=== PATIENT | female | born 1945 | race Caucasian/White ===

== ENCOUNTER 2017-12-03 20:38 | Inpatient (IN) | payer MEDICARE, BC ==
[2017-12-03] MEDS ORDERED: Sodium Chloride 0.9% 1,000 ML IV SCH ×2 (21:45→22:30)
--- NOTE | 2017-12-03 22:02 | EDM.PDOC ---
ED HPI GENERAL MEDICAL PROBLEM - General Chief Complaint: Fever Stated Complaint: FREEZING/2 HOURS Time Seen by Provider: 12/03/17 21:58 Source of Information: Reports: Patient, Family History Limitations: Reports: No Limitations - History of Present Illness INITIAL COMMENTS - FREE TEXT/NARRATIVE: Pt arrived with shaking chills and a temp of 101. She states she had been well and this hit her all of a sudden this evening. She has had a whipple. Onset: Today, Sudden Duration: Hour(s): Location: Reports: Generalized Associated Symptoms: Reports: Fever/Chills Treatments NUTRITION EDUCATOR: Reports: Other (see below) Other Treatments NUTRITION EDUCATOR: GasX Upper Middle Abdominal Pain Score (Numeric/FACES): 2 - Related Data Allergies Allergy/AdvReac Type Severity Reaction Status Date / Time butorphanol [From Stadol] Allergy Anxiety Verified 12/03/17 21:03 calcium [From DHEA] Allergy Anaphylactic Verified 12/03/17 21:03 Shock calcium carbonate [From DHEA] Allergy Anaphylactic Verified 12/03/17 21:03 Shock hydrocodone Allergy Hives Verified 12/03/17 21:03 lorazepam Allergy Anxiety Verified 12/03/17 21:03 methysergide [From Sansert] Allergy Hives Verified 12/03/17 21:03 morphine Allergy Hives Verified 12/03/17 21:03 prasterone (DHEA) [From DHEA] Allergy Anaphylactic Verified 12/03/17 21:03 Shock procaine [From Novocain] Allergy Facial Verified 12/03/17 21:01 Swelling Home Meds: Home Meds Aspirin [Adult Aspirin] 81 mg PO DAILY 12/03/17 [History] Atenolol 12.5 mg PO DAILY 12/03/17 [History] Diltiazem HCl [Cardizem] 30 mg PO DAILY 12/03/17 [History] Ranitidine [Zantac] 75 mg PO DAILY 12/03/17 [History] atorvaSTATin [Lipitor] 80 mg PO BEDTIME 12/03/17 [History] Past Medical History Cardiovascular History: Reports: Bypass, CAD, High Cholesterol, RI, Stents Gastrointestinal History: Reports: Bowel Obstruction [employer] History: Reports: Hematologic History: Reports: Blood Transfusion(s) - Infectious Disease History Infectious Disease History: Reports: Chicken Pox, Mumps - Past Surgical History HEENT Surgical History: Reports: Tonsillectomy GI Surgical History: Reports: Appendectomy, Cholecystectomy, Other (See Below) Other GI Surgeries/Procedures: whipple 2016 Female Surgical History: Reports: Hysterectomy, Lithotripsy/ESWL, Other (See Below) Other Female Surgeries/Procedures: Bladder suspension Endocrine Surgical History: Reports: Parathyroidectomy Neurological Surgical History: Reports: Lumbar Spine, Sacral Spine Musculoskeletal Surgical History: Reports: Arthroscopic Knee, Knee Replacement Social & Family History - Family History Family Medical History: Unobtainable - Tobacco Use Smoking Status *Q: Never Smoker Second Hand Smoke Exposure: No - Caffeine Use Other Caffeine Use: drinks decaf - Recreational Drug Use Recreational Drug Use: No ED ROS GENERAL - Review of Systems Review Of Systems: See Below Constitutional: Reports: Fever, Chills, Malaise HEENT: Reports: No Symptoms Respiratory: Reports: Shortness of Breath Cardiovascular: Reports: No Symptoms Endocrine: Reports: No Symptoms GI/Abdominal: Reports: Other (pt does have slight pain in the epigastric area. ) : Reports: No Symptoms Musculoskeletal: Reports: No Symptoms Skin: Reports: No Symptoms Neurological: Reports: No Symptoms Psychiatric: Reports: No Symptoms ED EXAM, SEPSIS - Physical Exam Exam: See Below Text/Narrative:: pt arrives with a fever and shaking chills. She states she was feeling well and this hit her all of a sudden this pm. Exam Limited By: No Limitations General Appearance: Alert, Anxious, Mild Distress Ears: Normal TMs Nose: Normal Inspection Throat/Mouth: Normal Inspection Head: Atraumatic Neck: Normal Inspection Respiratory/Chest: No Respiratory Distress Cardiovascular: Regular Rate, Rhythm, Tachycardia, Other (hr is 94) GI/Abdominal Exam: Soft, Non-Tender (Female) Exam: Deferred Rectal (Female) Exam: Deferred Back: Normal Inspection Extremities: Normal Inspection Neurological: Alert, Oriented, Normal Cognition Course - Vital Signs Last Recorded V/S: Last Vital Signs Temp 37.5 C 12/03/17 23:10 Pulse 95 12/03/17 23:10 Resp 14 12/03/17 23:10 BP 151/71 H 12/03/17 23:10 Pulse Ox 95 12/03/17 23:10 - Orders/Labs/Meds Orders: Active Orders 24 hr Category Date Time Status Chest 2V [CR] Stat Exams 12/03/17 22:27 Taken CULTURE BLOOD [BC] Urgent Lab 12/03/17 21:45 Received CULTURE BLOOD [BC] Urgent Lab 12/03/17 22:00 Received INFLUENZA A+B AG SCREEN [RM] Stat Lab 12/03/17 22:41 Ordered URINALYSIS W/MICROSCOPIC [UA W/MICROSCOPIC] [URIN] Stat Lab 12/03/17 21:27 Ordered Piperacillin/Tazobactam [Zosyn] 3.375 gm Med 12/03/17 23:00 Active Sodium Chloride 0.9% [Normal Saline] 50 ml IV Q6H Sodium Chloride 0.9% [Normal Saline] 1,000 ml Med 12/03/17 21:45 Active IV ASDIRECTED Sodium Chloride 0.9% [Normal Saline] 1,000 ml Med 12/03/17 22:30 Active IV ASDIRECTED Blood Culture x2 Reflex Set [OM.PC] Urgent Oth 12/03/17 22:03 Ordered Medication Orders Sodium Chloride (Normal Saline) 1,000 mls @ 999 mls/hr IV ASDIRECTED JOSELUIS Last Admin: 12/03/17 22:04 Dose: 999 mls/hr Sodium Chloride (Normal Saline) 1,000 mls @ 999 mls/hr IV ASDIRECTED JOSELUIS Piperacillin Sod/Tazobactam (Sod 3.375 gm/ Sodium Chloride) 50 mls @ 100 mls/ hr IV Q6H [facility] Labs: Laboratory Tests 12/03/17 12/03/17 12/03/17 Range/Units 21:27 21:44 21:44 WBC 16.8 H (4.5-11.0) K/uL RBC 4.44 (3.30-5.50) M/uL Hgb 11.9 L (12.0-15.0) g/dL Hct 36.7 (36.0-48.0) % MCV 83 (80-98) fL MCH 27 (27-31) pg MCHC 32 (32-36) % Plt Count 283 (150-400) K/uL Neut % (Auto) 88 H (36-66) % Lymph % (Auto) 6 L (24-44) % [place] % (Auto) 6 (2-6) % Eos % (Auto) 0 L (2-4) % Baso % (Auto) 0 (0-1) % Sodium (140-148) mmol/L Potassium (3.6-5.2) mmol/L Chloride (100-108) mmol/L Carbon Dioxide (21-32) mmol/L Anion Gap (5.0-14.0) mmol/L BUN (7-18) mg/dL Creatinine (0.6-1.0) mg/dL Est Cr Clr Drug Dosing mL/min Estimated GFR (MDRD) (>60) Glucose (74-106) mg/dL Lactic Acid (0.4-2.0) mmol/L Calcium (8.5-10.1) mg/dL Total Bilirubin (0.2-1.0) mg/dL AST (15-37) U/L ALT (12-78) U/L Alkaline Phosphatase (46-116) U/L C-Reactive Protein 0.36 H (0.0-0.3) mg/dL Total Protein (6.4-8.2) g/dL Albumin (3.4-5.0) g/dL Globulin (2.3-3.5) g/dL Albumin/Globulin Ratio (1.2-2.2) Amylase (25-115) U/L Lipase (73-393) U/L Urine Color Yellow Urine Appearance Clear Urine pH 8.0 (4.5-8.0) Ur Specific [place] 1.015 (1.008-1.030) Urine Protein Negative (NEGATIVE) mg/dL Urine Glucose (UA) Normal (NEGATIVE) mg/dL Urine Ketones Negative (NEGATIVE) mg/dL Urine Occult Blood Negative (NEGATIVE) Urine Nitrite Negative (NEGATIVE) Urine Bilirubin Negative (NEGATIVE) Urine Urobilinogen Normal (NORMAL) mg/dL Ur Leukocyte Esterase Negative (NEGATIVE) Urine RBC 0-5 (0-5) Urine WBC 0-5 (0-5) Ur Epithelial Cells Few Amorphous Sediment Not seen Urine Bacteria Not seen Urine Mucus Not seen 12/03/17 12/03/17 12/03/17 Range/Units 21:44 21:44 21:46 WBC (4.5-11.0) K/uL RBC (3.30-5.50) M/uL Hgb (12.0-15.0) g/dL Hct (36.0-48.0) % MCV (80-98) fL MCH (27-31) pg MCHC (32-36) % Plt Count (150-400) K/uL Neut % (Auto) (36-66) % Lymph % (Auto) (24-44) % [place] % (Auto) (2-6) % Eos % (Auto) (2-4) % Baso % (Auto) (0-1) % Sodium 140 (140-148) mmol/L Potassium 3.6 (3.6-5.2) mmol/L Chloride 103 (100-108) mmol/L Carbon Dioxide 24 (21-32) mmol/L Anion Gap 13.5 (5.0-14.0) mmol/L BUN 19 H (7-18) mg/dL Creatinine 0.8 (0.6-1.0) mg/dL Est Cr Clr Drug Dosing 50.67 mL/min Estimated GFR (MDRD) > 60 (>60) Glucose 158 H (74-106) mg/dL Lactic Acid 2.7 H (0.4-2.0) mmol/L Calcium 8.7 (8.5-10.1) mg/dL Total Bilirubin 0.4 (0.2-1.0) mg/dL AST 30 (15-37) U/L ALT 38 (12-78) U/L Alkaline Phosphatase 101 (46-116) U/L C-Reactive Protein (0.0-0.3) mg/dL Total Protein 7.1 (6.4-8.2) g/dL Albumin 3.7 (3.4-5.0) g/dL Globulin 3.4 (2.3-3.5) g/dL Albumin/Globulin Ratio 1.1 L (1.2-2.2) Amylase (25-115) U/L Lipase 107 (73-393) U/L Urine Color Urine Appearance Urine pH (4.5-8.0) Ur Specific [place] (1.008-1.030) Urine Protein (NEGATIVE) mg/dL Urine Glucose (UA) (NEGATIVE) mg/dL Urine Ketones (NEGATIVE) mg/dL Urine Occult Blood (NEGATIVE) Urine Nitrite (NEGATIVE) Urine Bilirubin (NEGATIVE) Urine Urobilinogen (NORMAL) mg/dL Ur Leukocyte Esterase (NEGATIVE) Urine RBC (0-5) Urine WBC (0-5) Ur Epithelial Cells Amorphous Sediment Urine Bacteria Urine Mucus 12/03/17 Range/Units 22:11 WBC (4.5-11.0) K/uL RBC (3.30-5.50) M/uL Hgb (12.0-15.0) g/dL Hct (36.0-48.0) % MCV (80-98) fL MCH (27-31) pg MCHC (32-36) % Plt Count (150-400) K/uL Neut % (Auto) (36-66) % Lymph % (Auto) (24-44) % [place] % (Auto) (2-6) % Eos % (Auto) (2-4) % Baso % (Auto) (0-1) % Sodium (140-148) mmol/L Potassium (3.6-5.2) mmol/L Chloride (100-108) mmol/L Carbon Dioxide (21-32) mmol/L Anion Gap (5.0-14.0) mmol/L BUN (7-18) mg/dL Creatinine (0.6-1.0) mg/dL Est Cr Clr Drug Dosing mL/min Estimated GFR (MDRD) (>60) Glucose (74-106) mg/dL Lactic Acid (0.4-2.0) mmol/L Calcium (8.5-10.1) mg/dL Total Bilirubin (0.2-1.0) mg/dL AST (15-37) U/L ALT (12-78) U/L Alkaline Phosphatase (46-116) U/L C-Reactive Protein (0.0-0.3) mg/dL Total Protein (6.4-8.2) g/dL Albumin (3.4-5.0) g/dL Globulin (2.3-3.5) g/dL Albumin/Globulin Ratio (1.2-2.2) Amylase 48 (25-115) U/L Lipase (73-393) U/L Urine Color Urine Appearance Urine pH (4.5-8.0) Ur Specific [place] (1.008-1.030) Urine Protein (NEGATIVE) mg/dL Urine Glucose (UA) (NEGATIVE) mg/dL Urine Ketones (NEGATIVE) mg/dL Urine Occult Blood (NEGATIVE) Urine Nitrite (NEGATIVE) Urine Bilirubin (NEGATIVE) Urine Urobilinogen (NORMAL) mg/dL Ur Leukocyte Esterase (NEGATIVE) Urine RBC (0-5) Urine WBC (0-5) Ur Epithelial Cells Amorphous Sediment Urine Bacteria Urine Mucus Meds: Medications Generic Name Dose Route Start Last Admin Trade Name Freq PRN Reason Stop Dose Admin Sodium Chloride 1,000 mls @ 999 mls/hr 12/03/17 21:45 12/03/17 22:04 Normal Saline IV 999 mls/hr ASDIRECTED JOSELUIS Administration Sodium Chloride 1,000 mls @ 999 mls/hr 12/03/17 22:30 Normal Saline IV ASDIRECTED JOSELUIS Piperacillin Sod/Tazobactam 50 mls @ 100 mls/hr 12/03/17 23:00 Sod 3.375 gm/ Sodium Chloride IV Q6H JOSELUIS Discontinued Medications Generic Name Dose Route Start Last Admin Trade Name Freq PRN Reason Stop Dose Admin Acetaminophen 650 mg 12/03/17 22:37 Tylenol PO 12/03/17 22:38 NOW ONE - Re-Assessments/Exams Free Text/Narrative Re-Assessment/Exam: 12/03/17 23:18 pt has a wbc greater than 16,000. She is having shaking chills and she has a temp of 102. She has not vomited. She has no pain when she urinates. Departure - Departure Time of Disposition: 23:19 Disposition: Admitted As Inpatient 65 Condition: Fair Clinical Impression: Sepsis, Dehydration - Discharge Information Referrals: PCP,None [Primary Care Provider] - Forms: ED Department Discharge Care Plan Goals: admit to [facility] - My Orders Last 24 Hours: My Active Orders 12/03/17 21:27 URINALYSIS W/MICROSCOPIC [UA W/MICROSCOPIC] [URIN] Stat 12/03/17 21:45 CULTURE BLOOD [BC] Urgent Sodium Chloride 0.9% [Normal Saline] 1,000 ml IV ASDIRECTED 12/03/17 22:00 CULTURE BLOOD [BC] Urgent 12/03/17 22:03 Blood Culture x2 Reflex Set [OM.PC] Urgent 12/03/17 22:27 Chest 2V [CR] Stat 12/03/17 22:30 Sodium Chloride 0.9% [Normal Saline] 1,000 ml IV ASDIRECTED 12/03/17 22:41 INFLUENZA A+B AG SCREEN [RM] Stat 12/03/17 23:00 Piperacillin/Tazobactam [Zosyn] 3.375 gm Sodium Chloride 0.9% [Normal Saline] 50 ml IV Q6H - Assessment/Plan Last 24 Hours: My Active Orders 12/03/17 21:27 URINALYSIS W/MICROSCOPIC [UA W/MICROSCOPIC] [URIN] Stat 12/03/17 21:45 CULTURE BLOOD [BC] Urgent Sodium Chloride 0.9% [Normal Saline] 1,000 ml IV ASDIRECTED 12/03/17 22:00 CULTURE BLOOD [BC] Urgent 12/03/17 22:03 Blood Culture x2 Reflex Set [OM.PC] Urgent 12/03/17 22:27 Chest 2V [CR] Stat 12/03/17 22:30 Sodium Chloride 0.9% [Normal Saline] 1,000 ml IV ASDIRECTED 12/03/17 22:41 INFLUENZA A+B AG SCREEN [RM] Stat 12/03/17 23:00 Piperacillin/Tazobactam [Zosyn] 3.375 gm Sodium Chloride 0.9% [Normal Saline] 50 ml IV Q6H
[2017-12-03] MEDS ORDERED: Acetaminophen 325 MG Tab PO ONE (22:37)
[2017-12-03] MEDS: Piperacillin/Tazobactam 3.375 GM in Sodium Chloride 0.9% 50 ML IV SCH (23:20)
[2017-12-04] MEDS ORDERED: Bisacodyl 5 MG Tab PO PRN (00:32)
[2017-12-04] MEDS ORDERED: Albuterol/Ipratropium 3.0-0.5 MG/3 ML Neb Soln NEB PRN (00:32)
[2017-12-04] MEDS ORDERED: oxyCODONE 5 MG Tab PO PRN (00:32)
[2017-12-04] MEDS ORDERED: Albuterol 0.083% 2.5 MG/3 ML Neb Soln NEB PRN (00:32)
[2017-12-04] MEDS ORDERED: Ondansetron 4 MG Tab.DIS PO PRN (00:32)
[2017-12-04] MEDS ORDERED: Ondansetron 4 MG/2 ML SDV IV PRN (00:32)
[2017-12-04] MEDS ORDERED: Docusate Sodium 100 MG Cap PO PRN (00:32)
[2017-12-04] MEDS ORDERED: Sodium Chloride 0.9% 1,000 ML IV SCH ×2 (00:32→10:45)
[2017-12-04] MEDS ORDERED: Pantoprazole 40 MG Vial IVPUSH SCH ×2 (00:32→21:00)
[2017-12-04] MEDS ORDERED: Enoxaparin 40 MG/0.4 ML Syringe SUBCUT SCH ×2 (00:32→21:00)
--- NOTE | 2017-12-04 00:40 | PCM.HP ---
H&P History of Present Illness - General Date of Service: 12/03/17 Admit Problem/Dx: Admission Diagnosis/Problem Admission Diagnosis/Problem Sepsis Source of Information: Patient History Limitations: Reports: No Limitations - History of Present Illness Initial Comments - Free Text/Narative: Pt arrived with shaking chills and a temp of 101. She states she had been well and this hit her all of a sudden this evening. She has had a whipple. pt has a wbc greater than 16,000. She is having shaking chills and she has a temp of 102. She has not vomited. She has no pain when she urinates. will plan to admit to hospital for further care and treatment. Onset of Symptoms: Reports: Sudden Symptom Onset Date: 12/03/17 Symptom Onset Time: 17:30 Duration of Symptoms: Reports: Hour(s):, Getting Worse Location: Reports: Generalized Improves with: Reports: None Worsens with: Reports: None Associated Symptoms: Reports: Fever/Chills, Nausea/Vomiting, Weakness Upper Middle Abdominal Pain Score (Numeric/FACES): 2 - Related Data Allergies/Adverse Reactions: Allergies Allergy/AdvReac Type Severity Reaction Status Date / Time butorphanol [From Stadol] Allergy Anxiety Verified 12/03/17 21:03 calcium [From DHEA] Allergy Anaphylactic Verified 12/03/17 21:03 Shock calcium carbonate [From DHEA] Allergy Anaphylactic Verified 12/03/17 21:03 Shock hydrocodone Allergy Hives Verified 12/03/17 21:03 lorazepam Allergy Anxiety Verified 12/03/17 21:03 methysergide [From Sansert] Allergy Hives Verified 12/03/17 21:03 morphine Allergy Hives Verified 12/03/17 21:03 prasterone (DHEA) [From DHEA] Allergy Anaphylactic Verified 12/03/17 21:03 Shock procaine [From Novocain] Allergy Facial Verified 12/03/17 21:01 Swelling Home Medications: Home Meds Aspirin [Adult Aspirin] 81 mg PO DAILY 12/03/17 [History] Atenolol 12.5 mg PO DAILY 12/03/17 [History] Diltiazem HCl [Cardizem] 30 mg PO DAILY 12/03/17 [History] Ranitidine [Zantac] 75 mg PO DAILY 12/03/17 [History] atorvaSTATin [Lipitor] 80 mg PO BEDTIME 12/03/17 [History] Past Medical History Cardiovascular History: Reports: Bypass, CAD, High Cholesterol, [place], Stents, Other (See Below) (Reports history of DVT of lower legs 3) Gastrointestinal History: Reports: Bowel Obstruction 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: Hematologic History: Reports: Blood Transfusion(s) - Infectious Disease History Infectious Disease History: Reports: Chicken Pox, Mumps - Past Surgical History HEENT Surgical History: Reports: Tonsillectomy GI Surgical History: Reports: Appendectomy, Cholecystectomy, Other (See Below) Other GI Surgeries/Procedures: whipple 2016 Female Surgical History: Reports: Hysterectomy, Lithotripsy/ESWL, Other (See Below) Other Female Surgeries/Procedures: Bladder suspension Endocrine Surgical History: Reports: Parathyroidectomy Neurological Surgical History: Reports: Lumbar Spine, Sacral Spine Musculoskeletal Surgical History: Reports: Arthroscopic Knee, Knee Replacement Social & Family History - Family History Family Medical History: Unobtainable - Tobacco Use Smoking Status *Q: Never Smoker Second Hand Smoke Exposure: No - Caffeine Use Other Caffeine Use: drinks decaf - Recreational Drug Use Recreational Drug Use: No - Living Situation & Occupation Living situation: Reports: Occupation: Retired (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 Retired nurse 6 children 11 grandchildren and 6 great- grandchildren) H&P Review of Systems - Review of Systems: Review Of Systems: See Below General: Reports: Fever, Chills, Malaise, Weakness HEENT: Reports: No Symptoms Pulmonary: Reports: No Symptoms Cardiovascular: Reports: No Symptoms Gastrointestinal: Reports: No Symptoms Genitourinary: Reports: No Symptoms Musculoskeletal: Reports: No Symptoms Skin: Reports: No Symptoms Psychiatric: Reports: No Symptoms Neurological: Reports: No Symptoms Hematologic/Lymphatic: Reports: No Symptoms Immunologic: Reports: No Symptoms Exam - Exam Exam: See Below - Vital Signs Vital Signs: Last Vital Signs Temp 37.4 C 12/03/17 23:45 Pulse 93 12/03/17 23:45 Resp 12 12/03/17 23:45 BP 172/73 H 12/03/17 23:45 Pulse Ox 97 12/03/17 23:45 Weight: 74.389 kg - Exam General: Alert, Oriented, Cooperative HEENT: PERRLA, Conjunctiva Clear, EACs Clear, EOMI, Hearing Intact, Mucosa Moist & [place], Nares Patent, Normal Nasal Septum, Posterior Pharynx Clear, Pupils Equal, Pupils Reactive, TMs Clear, Glasses, Other (Natural teeth) Neck: Supple, Trachea Midline, Full Range of Motion Lungs: Clear to Auscultation, Normal Respiratory Effort Cardiovascular: Regular Rate, Regular Rhythm, Normal S1, Normal S2 GI/Abdominal Exam: Normal Bowel Sounds, Soft, Non-Tender, No Organomegaly, No Distention, No Abnormal Bruit, No Mass (Female) Exam: Deferred Rectal (Female) Exam: Deferred Back Exam: Normal Inspection, Full Range of Motion Extremities: Normal Inspection, Normal Range of Motion, Non-Tender, No Pedal Edema, Normal Capillary Refill Skin: Warm, Dry, Intact Neurological: Cranial Nerves Intact, Strength Equal Bilateral, Normal Speech, Normal Tone, Sensation Intact Neuro Extensive - Mental Status: Alert, Oriented x3, Normal Mood/Affect, Normal Cognition, Memory Intact Neuro Extensive - Motor, Sensory, Reflexes: Normal Reflexes, Motor/Sensory Deficits Psychiatric: Alert, Normal Affect, Normal Mood - Patient Data Lab Results Last 24 hrs: Laboratory Results - last 24 hr 12/03/17 12/03/17 12/03/17 Range/Units 21:27 21:44 21:44 WBC 16.8 H (4.5-11.0) K/uL RBC 4.44 (3.30-5.50) M/uL Hgb 11.9 L (12.0-15.0) g/dL Hct 36.7 (36.0-48.0) % MCV 83 (80-98) fL MCH 27 (27-31) pg MCHC 32 (32-36) % Plt Count 283 (150-400) K/uL Neut % (Auto) 88 H (36-66) % Lymph % (Auto) 6 L (24-44) % Dawson % (Auto) 6 (2-6) % Eos % (Auto) 0 L (2-4) % Baso % (Auto) 0 (0-1) % Sodium (140-148) mmol/L Potassium (3.6-5.2) mmol/L Chloride (100-108) mmol/L Carbon Dioxide (21-32) mmol/L Anion Gap (5.0-14.0) mmol/L BUN (7-18) mg/dL Creatinine (0.6-1.0) mg/dL Est Cr Clr Drug Dosing mL/min Estimated GFR (MDRD) (>60) Glucose (74-106) mg/dL Lactic Acid (0.4-2.0) mmol/L Calcium (8.5-10.1) mg/dL Total Bilirubin (0.2-1.0) mg/dL AST (15-37) U/L ALT (12-78) U/L Alkaline Phosphatase (46-116) U/L C-Reactive Protein 0.36 H (0.0-0.3) mg/dL Total Protein (6.4-8.2) g/dL Albumin (3.4-5.0) g/dL Globulin (2.3-3.5) g/dL Albumin/Globulin Ratio (1.2-2.2) Amylase (25-115) U/L Lipase (73-393) U/L Urine Color Yellow Urine Appearance Clear Urine pH 8.0 (4.5-8.0) Ur Specific [place] 1.015 (1.008-1.030) Urine Protein Negative (NEGATIVE) mg/dL Urine Glucose (UA) Normal (NEGATIVE) mg/dL Urine Ketones Negative (NEGATIVE) mg/dL Urine Occult Blood Negative (NEGATIVE) Urine Nitrite Negative (NEGATIVE) Urine Bilirubin Negative (NEGATIVE) Urine Urobilinogen Normal (NORMAL) mg/dL Ur Leukocyte Esterase Negative (NEGATIVE) Urine RBC 0-5 (0-5) Urine WBC 0-5 (0-5) Ur Epithelial Cells Few Amorphous Sediment Not seen Urine Bacteria Not seen Urine Mucus Not seen 12/03/17 12/03/17 12/03/17 Range/Units 21:44 21:44 21:46 WBC (4.5-11.0) K/uL RBC (3.30-5.50) M/uL Hgb (12.0-15.0) g/dL Hct (36.0-48.0) % MCV (80-98) fL MCH (27-31) pg MCHC (32-36) % Plt Count (150-400) K/uL Neut % (Auto) (36-66) % Lymph % (Auto) (24-44) % Dawson % (Auto) (2-6) % Eos % (Auto) (2-4) % Baso % (Auto) (0-1) % Sodium 140 (140-148) mmol/L Potassium 3.6 (3.6-5.2) mmol/L Chloride 103 (100-108) mmol/L Carbon Dioxide 24 (21-32) mmol/L Anion Gap 13.5 (5.0-14.0) mmol/L BUN 19 H (7-18) mg/dL Creatinine 0.8 (0.6-1.0) mg/dL Est Cr Clr Drug Dosing 50.67 mL/min Estimated GFR (MDRD) > 60 (>60) Glucose 158 H (74-106) mg/dL Lactic Acid 2.7 H (0.4-2.0) mmol/L Calcium 8.7 (8.5-10.1) mg/dL Total Bilirubin 0.4 (0.2-1.0) mg/dL AST 30 (15-37) U/L ALT 38 (12-78) U/L Alkaline Phosphatase 101 (46-116) U/L C-Reactive Protein (0.0-0.3) mg/dL Total Protein 7.1 (6.4-8.2) g/dL Albumin 3.7 (3.4-5.0) g/dL Globulin 3.4 (2.3-3.5) g/dL Albumin/Globulin Ratio 1.1 L (1.2-2.2) Amylase (25-115) U/L Lipase 107 (73-393) U/L Urine Color Urine Appearance Urine pH (4.5-8.0) Ur Specific [place] (1.008-1.030) Urine Protein (NEGATIVE) mg/dL Urine Glucose (UA) (NEGATIVE) mg/dL Urine Ketones (NEGATIVE) mg/dL Urine Occult Blood (NEGATIVE) Urine Nitrite (NEGATIVE) Urine Bilirubin (NEGATIVE) Urine Urobilinogen (NORMAL) mg/dL Ur Leukocyte Esterase (NEGATIVE) Urine RBC (0-5) Urine WBC (0-5) Ur Epithelial Cells Amorphous Sediment Urine Bacteria Urine Mucus 12/03/17 Range/Units 22:11 WBC (4.5-11.0) K/uL RBC (3.30-5.50) M/uL Hgb (12.0-15.0) g/dL Hct (36.0-48.0) % MCV (80-98) fL MCH (27-31) pg MCHC (32-36) % Plt Count (150-400) K/uL Neut % (Auto) (36-66) % Lymph % (Auto) (24-44) % Dawson % (Auto) (2-6) % Eos % (Auto) (2-4) % Baso % (Auto) (0-1) % Sodium (140-148) mmol/L Potassium (3.6-5.2) mmol/L Chloride (100-108) mmol/L Carbon Dioxide (21-32) mmol/L Anion Gap (5.0-14.0) mmol/L BUN (7-18) mg/dL Creatinine (0.6-1.0) mg/dL Est Cr Clr Drug Dosing mL/min Estimated GFR (MDRD) (>60) Glucose (74-106) mg/dL Lactic Acid (0.4-2.0) mmol/L Calcium (8.5-10.1) mg/dL Total Bilirubin (0.2-1.0) mg/dL AST (15-37) U/L ALT (12-78) U/L Alkaline Phosphatase (46-116) U/L C-Reactive Protein (0.0-0.3) mg/dL Total Protein (6.4-8.2) g/dL Albumin (3.4-5.0) g/dL Globulin (2.3-3.5) g/dL Albumin/Globulin Ratio (1.2-2.2) Amylase 48 (25-115) U/L Lipase (73-393) U/L Urine Color Urine Appearance Urine pH (4.5-8.0) Ur Specific [place] (1.008-1.030) Urine Protein (NEGATIVE) mg/dL Urine Glucose (UA) (NEGATIVE) mg/dL Urine Ketones (NEGATIVE) mg/dL Urine Occult Blood (NEGATIVE) Urine Nitrite (NEGATIVE) Urine Bilirubin (NEGATIVE) Urine Urobilinogen (NORMAL) mg/dL Ur Leukocyte Esterase (NEGATIVE) Urine RBC (0-5) Urine WBC (0-5) Ur Epithelial Cells Amorphous Sediment Urine Bacteria Urine Mucus Result Diagrams: 12/03/17 21:44 12/03/17 21:44 Donny Results Last 24 hrs: Microbiology 12/03/17 22:41 Influenza Type A Antigen Screen - Final Nasopharyngeal Swab - Nare, Unspecified NEGATIVE INFLUENZA A VIRUS AG Influenza Type B Antigen Screen - Final NEGATIVE INFLUENZA B VIRUS AG - Problem List (1) Diabetes type 2, controlled SNOMED Code(s): 86780762 ICD Code: E11.9 - TYPE 2 DIABETES MELLITUS WITHOUT COMPLICATIONS Status: Acute Priority: Medium Current Visit: Yes Qualifiers: Diabetes mellitus jail insulin use: without intermodal dispatcher use Diabetes mellitus complication status: without complication Qualified Code(s): E11.9 - Type 2 diabetes mellitus without complications (2) Sepsis SNOMED Code(s): 38172138 ICD Code: A41.9 - SEPSIS, UNSPECIFIED ORGANISM Status: Acute Priority: High Current Visit: Yes Qualifiers: Sepsis type: sepsis due to unspecified organism Qualified Code(s): A41.9 - Sepsis, unspecified organism (3) Coronary artery disease SNOMED Code(s): 22430229 ICD Code: I25.10 - ATHSCL HEART DISEASE OF [place] CORONARY ARTERY W/O ANG PCTRS Status: Acute Priority: Medium Current Visit: Yes Qualifiers: Coronary Disease-Associated Artery/Lesion type: bypass graft [place] vs. transplanted heart: [place] heart Associated angina: without angina Qualified Code(s): I25.810 - Atherosclerosis of coronary artery bypass graft(s) without angina pectoris Problem List Initiated/Reviewed/Updated: Yes Orders Last 24hrs: Active Orders 24 hr Category Date Time Status Patient Status [ADT] Routine ADT 12/04/17 00:32 Active Diabetes Education [RC] Click to Edit Care 12/04/17 00:32 Active Intake and Output [RC] QSHIFT Care 12/04/17 00:32 Active Notify Provider Vital Signs [RC] ASDIRECTED Care 12/04/17 00:32 Active Notify Provider [RC] PRN Care 12/04/17 00:32 Active Oxygen Therapy [RC] PRN Care 12/04/17 00:32 Active Pulse Oximetry [RC] PRN Care 12/04/17 00:32 Active RT Aerosol Therapy [RC] ASDIRECTED Care 12/04/17 00:32 Active VTE/DVT Education [RC] Per Unit Routine Care 12/04/17 00:32 Active Vital Signs [RC] Q4H Care 12/04/17 00:32 Active Consult to Spiritual Care [CONS] Routine Cons 12/04/17 00:32 Active Consistent Carbohydrate Diet [DIET] Diet 12/04/17 Breakfast Active Chest 2V [CR] Stat Exams 12/03/17 22:27 Taken BASIC METABOLIC PANEL,BMP [CHEM] AM Lab 12/04/17 05:11 Ordered C-REACTIVE PROTEIN [CHEM] AM Lab 12/04/17 05:11 Ordered C-REACTIVE PROTEIN [CHEM] Stat Lab 12/04/17 00:32 Ordered CBC WITH AUTO DIFF [HEME] AM Lab 12/04/17 05:11 Ordered CULTURE BLOOD [BC] Urgent Lab 12/03/17 21:45 Received CULTURE BLOOD [BC] Urgent Lab 12/03/17 22:00 Received GLUCOSE POC LAB TO COLLECT [POC] QIDACANDBED Lab 12/04/17 07:30 Ordered GLUCOSE POC LAB TO COLLECT [POC] QIDACANDBED Lab 12/04/17 11:30 Ordered GLUCOSE POC LAB TO COLLECT [POC] QIDACANDBED Lab 12/04/17 16:30 Ordered GLUCOSE POC LAB TO COLLECT [POC] QIDACANDBED Lab 12/04/17 21:00 Ordered INFLUENZA A+B AG SCREEN [RM] Stat Lab 12/03/17 22:41 Ordered LACTIC ACID [CHEM] AM Lab 12/04/17 05:11 Ordered URINALYSIS W/MICROSCOPIC [UA W/MICROSCOPIC] [URIN] Stat Lab 12/03/17 21:27 Ordered Acetaminophen [Tylenol] Med 12/04/17 00:32 Ordered 650 mg PO Q4H PRN Albuterol [Proventil Neb Soln] Med 12/04/17 00:32 Ordered 2.5 mg NEB Q4H PRN Albuterol/Ipratropium [DuoNeb 3.0-0.5 MG/3 ML] Med 12/04/17 00:32 Ordered 3 ml NEB QID PRN Atenolol [Tenormin] Med 12/04/17 09:00 Ordered 12.5 mg PO DAILY Bisacodyl [Dulcolax] Med 12/04/17 00:32 Ordered 5 mg PO DAILY PRN Diltiazem IR [Cardizem] Med 12/04/17 09:00 Ordered 30 mg PO DAILY Docusate Sodium [Colace] Med 12/04/17 00:32 Ordered 100 mg PO BID PRN Enoxaparin [Lovenox] Med 12/04/17 00:32 Ordered 40 mg SUBCUT DAILY Insulin Aspart [NovoLOG] Med 12/04/17 07:00 Ordered See Protocol SUBCUT QIDACANDBED Ondansetron [Zofran ODT] Med 12/04/17 00:32 Ordered 4 mg PO Q6H PRN Ondansetron [Zofran] Med 12/04/17 00:32 Ordered 4 mg IV Q4H PRN Pantoprazole [ProTONIX IV] Med 12/04/17 00:32 Ordered 40 mg IVPUSH Q24H Piperacillin/Tazobactam [Zosyn] 3.375 gm Med 12/03/17 23:00 Active Sodium Chloride 0.9% [Normal Saline] 50 ml IV Q6H Sodium Chloride 0.9% [Normal Saline] 1,000 ml Med 12/03/17 21:45 Active IV ASDIRECTED Sodium Chloride 0.9% [Normal Saline] 1,000 ml Med 12/03/17 22:30 Active IV ASDIRECTED Sodium Chloride 0.9% [Normal Saline] 1,000 ml Med 12/04/17 00:32 Ordered IV ASDIRECTED atorvaSTATin [Lipitor] Med 12/04/17 21:00 Ordered 80 mg PO BEDTIME diphenhydrAMINE [Benadryl] Med 12/04/17 00:32 Ordered 25 mg PO BEDTIME PRN oxyCODONE Med 12/04/17 00:32 Ordered 5 mg PO Q4H PRN Blood Culture x2 Reflex Set [OM.PC] Urgent Oth 12/03/17 22:03 Ordered Resuscitation Status Routine Resus Stat 12/04/17 00:07 Ordered Medication Orders Acetaminophen (Tylenol) 650 mg PO Q4H PRN PRN Reason: Pain (Mild 1-3)/fever Albuterol (Proventil Neb Soln) 2.5 mg NEB Q4H PRN PRN Reason: Shortness Of Breath/wheezing Albuterol/Ipratropium (Duoneb 3.0-0.5 Mg/3 Ml) 3 ml NEB QID PRN PRN Reason: Shortness Of Breath/wheezing Atenolol (Tenormin) 12.5 mg PO DAILY JOSELUIS Bisacodyl (Dulcolax) 5 mg PO DAILY PRN PRN Reason: Constipation Diltiazem HCl (Cardizem) 30 mg PO DAILY JOSELUIS Diphenhydramine HCl (Benadryl) 25 mg PO BEDTIME PRN PRN Reason: Insomnia Docusate Sodium (Colace) 100 mg PO BID PRN PRN Reason: Constipation Enoxaparin Sodium (Lovenox) 40 mg SUBCUT DAILY [facility] Sodium Chloride (Normal Saline) 1,000 mls @ 999 mls/hr IV ASDIRECTED [facility] Last Admin: 12/03/17 22:04 Dose: 999 mls/hr Sodium Chloride (Normal Saline) 1,000 mls @ 999 mls/hr IV ASDIRECTED [facility] Last Admin: 12/03/17 23:18 Dose: 999 mls/hr Piperacillin Sod/Tazobactam (Sod 3.375 gm/ Sodium Chloride) 50 mls @ 100 mls/ hr IV Q6H [facility] Last Admin: 12/03/17 23:20 Dose: 100 mls/hr Sodium Chloride (Normal Saline) 1,000 mls @ 125 mls/hr IV ASDIRECTED [facility] Insulin Aspart (Novolog) 0 unit SUBCUT QIDACANDBED [facility]; Protocol Non-Formulary Medication (Atorvastatin [Lipitor]) 80 mg PO BEDTIME [facility] Ondansetron HCl (Zofran Odt) 4 mg PO Q6H PRN PRN Reason: Nausea able to take PO Ondansetron HCl (Zofran) 4 mg IV Q4H PRN PRN Reason: Nausea/Vomiting Oxycodone HCl (Oxycodone) 5 mg PO Q4H PRN PRN Reason: Pain (moderate 4-6) Pantoprazole Sodium (Protonix Iv) 40 mg IVPUSH Q24H [facility] Assessment/Plan Comment:: Assessment/Plan Comment:: ASSESSMENT AND PLAN - Mrs. Naranjo reports a sudden onset of fever and shaking chills started at 5: 30 PM on 12/03/17. She reports her day started about as usual she ate and drank her normal amounts , intake fluids , she was active and then got suddenly ill. Denies any tick bites, sick contacts, or any other recent illness. She became progressively weaker with shaking chills came to ER for treatment from her home in [facility]. In the ER he had labs which show a WBC 16, 000, lactic acid 2.7, influenza A and B negative, Chest xray negative. She was given one liter of fluid, Zosyn 3.375 mg IV. Sepsis unknown cause -IV Zosyn 3.375 mg every 6 hours -IV fluid bolus followed by continuous infusion overnight. Lactated Ringer's at 125 mL per hour -Blood culture pending -Scheduled and as needed nebulizers -Repeat labs in a.m. Coronary artery disease with hyperlipidemia -History of DVT 3 -Lovenox 40 mg subcut now -Outpatient medications Diabetes type 2 -Glucose monitoring 4 times daily -Low dose sliding scale insulin -Hold metformin Maintenance issues - - DVT prophylaxis - Lovenox 40 mg subcutaneous - GI prophylaxis - IV Protonix 40mg po daily - Nutrition - consistent carb diet - Howell catheter - not indicated CODE STATUS -full Admission justification - This patient will be admitted for inpatient services and is medically appropriate meeting medical necessity for inpatient admission as outlined in my documentation. I reasonably expect the patient will require inpatient services that span a period time over 2 midnights. I reasonably expect this patient to be discharged or transferred within 96 hours [facility]. Disposition - anticipate discharge home after the hospital stay Primary care physician - [id number] health care provider Hospitalists: Joaquín Manley M.D.
[2017-12-04] MEDS: diphenhydrAMINE 25 MG Cap PO PRN ×2 (01:26→22:23)
[2017-12-04] MEDS: Acetaminophen 325 MG Tab PO PRN ×3 (03:21→19:28)
[2017-12-04] MEDS: Piperacillin/Tazobactam 3.375 GM in Sodium Chloride 0.9% 50 ML IV SCH (05:23)
[2017-12-04] MEDS: Insulin Aspart 100 Units/ML 3 ML Pen SUBCUT SCH ×4 (09:04→21:13)
--- NOTE | 2017-12-04 09:32 | CR ---
CHEST: 2 view CLINICAL HISTORY:Fever COMPARISON:None FINDINGS: Heart size and pulmonary vascularity are normal. Patient has had previous sternotomy. No i nfiltrate effusion or pneumothorax is seen. IMPRESSION: Previous sternotomy No acute cardio pelvic process
[2017-12-04] MEDS: Atenolol 25 MG Tab PO SCH (09:40)
[2017-12-04] MEDS: Diltiazem IR 30 MG Tab PO SCH (09:41)
--- NOTE | 2017-12-04 10:36 | PCM.PN ---
- General Info Date of Service: 12/04/17 Functional Status: Reports: Pain Controlled, Tolerating Diet - Review of Systems General: Denies: Fever Gastrointestinal: Reports: Abdominal Pain Systems Review Comment:: No acute events overnight. Shaking has resolved. No fever this morning. White blood cell count trending down. Mild to moderate epigastric abdominal pain but no nausea or vomiting. No diarrhea. - Patient Data Vitals - Most Recent: Last Vital Signs Temp 37.3 C 12/04/17 07:00 Pulse 82 12/04/17 09:40 Resp 16 12/04/17 07:00 BP 144/64 H 12/04/17 09:40 Pulse Ox 96 12/04/17 10:11 Weight - Most Recent: 78.29 kg I&O - Last 24 Hours: Intake & Output 12/03/17 12/04/17 12/04/17 22:59 06:59 14:59 Intake Total 700 Output Total 1100 1850 1400 Balance -1100 -1150 -1400 Lab Results Last 24 Hours: Laboratory Results - last 24 hr 12/03/17 12/03/17 12/03/17 Range/Units 21:27 21:44 21:44 WBC 16.8 H (4.5-11.0) K/uL RBC 4.44 (3.30-5.50) M/uL Hgb 11.9 L (12.0-15.0) g/dL Hct 36.7 (36.0-48.0) % MCV 83 (80-98) fL MCH 27 (27-31) pg MCHC 32 (32-36) % Plt Count 283 (150-400) K/uL Neut % (Auto) 88 H (36-66) % Lymph % (Auto) 6 L (24-44) % Delta % (Auto) 6 (2-6) % Eos % (Auto) 0 L (2-4) % Baso % (Auto) 0 (0-1) % Sodium (140-148) mmol/L Potassium (3.6-5.2) mmol/L Chloride (100-108) mmol/L Carbon Dioxide (21-32) mmol/L Anion Gap (5.0-14.0) mmol/L BUN (7-18) mg/dL Creatinine (0.6-1.0) mg/dL Est Cr Clr Drug Dosing mL/min Estimated GFR (MDRD) (>60) Glucose (74-106) mg/dL Lactic Acid (0.4-2.0) mmol/L Calcium (8.5-10.1) mg/dL Total Bilirubin (0.2-1.0) mg/dL AST (15-37) U/L ALT (12-78) U/L Alkaline Phosphatase (46-116) U/L C-Reactive Protein 0.36 H (0.0-0.3) mg/dL Total Protein (6.4-8.2) g/dL Albumin (3.4-5.0) g/dL Globulin (2.3-3.5) g/dL Albumin/Globulin Ratio (1.2-2.2) Amylase (25-115) U/L Lipase (73-393) U/L Urine Color Yellow Urine Appearance Clear Urine pH 8.0 (4.5-8.0) Ur Specific Clark 1.015 (1.008-1.030) Urine Protein Negative (NEGATIVE) mg/dL Urine Glucose (UA) Normal (NEGATIVE) mg/dL Urine Ketones Negative (NEGATIVE) mg/dL Urine Occult Blood Negative (NEGATIVE) Urine Nitrite Negative (NEGATIVE) Urine Bilirubin Negative (NEGATIVE) Urine Urobilinogen Normal (NORMAL) mg/dL Ur Leukocyte Esterase Negative (NEGATIVE) Urine RBC 0-5 (0-5) Urine WBC 0-5 (0-5) Ur Epithelial Cells Few Amorphous Sediment Not seen Urine Bacteria Not seen Urine Mucus Not seen 12/03/17 12/03/17 12/03/17 Range/Units 21:44 21:44 21:46 WBC (4.5-11.0) K/uL RBC (3.30-5.50) M/uL Hgb (12.0-15.0) g/dL Hct (36.0-48.0) % MCV (80-98) fL MCH (27-31) pg MCHC (32-36) % Plt Count (150-400) K/uL Neut % (Auto) (36-66) % Lymph % (Auto) (24-44) % Delta % (Auto) (2-6) % Eos % (Auto) (2-4) % Baso % (Auto) (0-1) % Sodium 140 (140-148) mmol/L Potassium 3.6 (3.6-5.2) mmol/L Chloride 103 (100-108) mmol/L Carbon Dioxide 24 (21-32) mmol/L Anion Gap 13.5 (5.0-14.0) mmol/L BUN 19 H (7-18) mg/dL Creatinine 0.8 (0.6-1.0) mg/dL Est Cr Clr Drug Dosing 50.67 mL/min Estimated GFR (MDRD) > 60 (>60) Glucose 158 H (74-106) mg/dL Lactic Acid 2.7 H (0.4-2.0) mmol/L Calcium 8.7 (8.5-10.1) mg/dL Total Bilirubin 0.4 (0.2-1.0) mg/dL AST 30 (15-37) U/L ALT 38 (12-78) U/L Alkaline Phosphatase 101 (46-116) U/L C-Reactive Protein (0.0-0.3) mg/dL Total Protein 7.1 (6.4-8.2) g/dL Albumin 3.7 (3.4-5.0) g/dL Globulin 3.4 (2.3-3.5) g/dL Albumin/Globulin Ratio 1.1 L (1.2-2.2) Amylase (25-115) U/L Lipase 107 (73-393) U/L Urine Color Urine Appearance Urine pH (4.5-8.0) Ur Specific Clark (1.008-1.030) Urine Protein (NEGATIVE) mg/dL Urine Glucose (UA) (NEGATIVE) mg/dL Urine Ketones (NEGATIVE) mg/dL Urine Occult Blood (NEGATIVE) Urine Nitrite (NEGATIVE) Urine Bilirubin (NEGATIVE) Urine Urobilinogen (NORMAL) mg/dL Ur Leukocyte Esterase (NEGATIVE) Urine RBC (0-5) Urine WBC (0-5) Ur Epithelial Cells Amorphous Sediment Urine Bacteria Urine Mucus 12/03/17 12/04/17 12/04/17 Range/Units 22:11 05:04 05:04 WBC 11.9 H (4.5-11.0) K/uL RBC 3.96 (3.30-5.50) M/uL Hgb 10.5 L (12.0-15.0) g/dL Hct 33.0 L (36.0-48.0) % MCV 83 (80-98) fL MCH 27 (27-31) pg MCHC 32 (32-36) % Plt Count 262 (150-400) K/uL Neut % (Auto) 80 H (36-66) % Lymph % (Auto) 13 L (24-44) % Delta % (Auto) 6 (2-6) % Eos % (Auto) 1 L (2-4) % Baso % (Auto) 0 (0-1) % Sodium 143 (140-148) mmol/L Potassium 3.4 L (3.6-5.2) mmol/L Chloride 108 (100-108) mmol/L Carbon Dioxide 24 (21-32) mmol/L Anion Gap 14.4 H (5.0-14.0) mmol/L BUN 12 (7-18) mg/dL Creatinine 0.6 (0.6-1.0) mg/dL Est Cr Clr Drug Dosing 67.56 mL/min Estimated GFR (MDRD) > 60 (>60) Glucose 122 H (74-106) mg/dL Lactic Acid (0.4-2.0) mmol/L Calcium 7.8 L (8.5-10.1) mg/dL Total Bilirubin (0.2-1.0) mg/dL AST (15-37) U/L ALT (12-78) U/L Alkaline Phosphatase (46-116) U/L C-Reactive Protein 1.43 H (0.0-0.3) mg/dL Total Protein (6.4-8.2) g/dL Albumin (3.4-5.0) g/dL Globulin (2.3-3.5) g/dL Albumin/Globulin Ratio (1.2-2.2) Amylase 48 (25-115) U/L Lipase (73-393) U/L Urine Color Urine Appearance Urine pH (4.5-8.0) Ur Specific Clark (1.008-1.030) Urine Protein (NEGATIVE) mg/dL Urine Glucose (UA) (NEGATIVE) mg/dL Urine Ketones (NEGATIVE) mg/dL Urine Occult Blood (NEGATIVE) Urine Nitrite (NEGATIVE) Urine Bilirubin (NEGATIVE) Urine Urobilinogen (NORMAL) mg/dL Ur Leukocyte Esterase (NEGATIVE) Urine RBC (0-5) Urine WBC (0-5) Ur Epithelial Cells Amorphous Sediment Urine Bacteria Urine Mucus 12/04/17 Range/Units 05:04 WBC (4.5-11.0) K/uL RBC (3.30-5.50) M/uL Hgb (12.0-15.0) g/dL Hct (36.0-48.0) % MCV (80-98) fL MCH (27-31) pg MCHC (32-36) % Plt Count (150-400) K/uL Neut % (Auto) (36-66) % Lymph % (Auto) (24-44) % Delta % (Auto) (2-6) % Eos % (Auto) (2-4) % Baso % (Auto) (0-1) % Sodium (140-148) mmol/L Potassium (3.6-5.2) mmol/L Chloride (100-108) mmol/L Carbon Dioxide (21-32) mmol/L Anion Gap (5.0-14.0) mmol/L BUN (7-18) mg/dL Creatinine (0.6-1.0) mg/dL Est Cr Clr Drug Dosing mL/min Estimated GFR (MDRD) (>60) Glucose (74-106) mg/dL Lactic Acid 1.5 (0.4-2.0) mmol/L Calcium (8.5-10.1) mg/dL Total Bilirubin (0.2-1.0) mg/dL AST (15-37) U/L ALT (12-78) U/L Alkaline Phosphatase (46-116) U/L C-Reactive Protein (0.0-0.3) mg/dL Total Protein (6.4-8.2) g/dL Albumin (3.4-5.0) g/dL Globulin (2.3-3.5) g/dL Albumin/Globulin Ratio (1.2-2.2) Amylase (25-115) U/L Lipase (73-393) U/L Urine Color Urine Appearance Urine pH (4.5-8.0) Ur Specific Clark (1.008-1.030) Urine Protein (NEGATIVE) mg/dL Urine Glucose (UA) (NEGATIVE) mg/dL Urine Ketones (NEGATIVE) mg/dL Urine Occult Blood (NEGATIVE) Urine Nitrite (NEGATIVE) Urine Bilirubin (NEGATIVE) Urine Urobilinogen (NORMAL) mg/dL Ur Leukocyte Esterase (NEGATIVE) Urine RBC (0-5) Urine WBC (0-5) Ur Epithelial Cells Amorphous Sediment Urine Bacteria Urine Mucus Donny Results Last 24 Hours: Microbiology 12/03/17 22:41 Influenza Type A Antigen Screen - Final Nasopharyngeal Swab - Nare, Unspecified NEGATIVE INFLUENZA A VIRUS AG Influenza Type B Antigen Screen - Final NEGATIVE INFLUENZA B VIRUS AG Med Orders - Current: Current Medications Acetaminophen (Tylenol) 650 mg PO Q4H PRN PRN Reason: Pain (Mild 1-3)/fever Last Admin: 12/04/17 07:17 Dose: 650 mg Albuterol (Proventil Neb Soln) 2.5 mg NEB Q4H PRN PRN Reason: Shortness Of Breath/wheezing Albuterol/Ipratropium (Duoneb 3.0-0.5 Mg/3 Ml) 3 ml NEB QID PRN PRN Reason: Shortness Of Breath/wheezing Atenolol (Tenormin) 12.5 mg PO DAILY [facility] Last Admin: 12/04/17 09:40 Dose: 12.5 mg Atorvastatin Calcium (Lipitor) 20 mg PO BEDTIME [facility] Bisacodyl (Dulcolax) 5 mg PO DAILY PRN PRN Reason: Constipation Diltiazem HCl (Cardizem) 30 mg PO DAILY [facility] Last Admin: 12/04/17 09:41 Dose: 30 mg Diphenhydramine HCl (Benadryl) 25 mg PO BEDTIME PRN PRN Reason: Insomnia Last Admin: 12/04/17 01:26 Dose: 25 mg Docusate Sodium (Colace) 100 mg PO BID PRN PRN Reason: Constipation Enoxaparin Sodium (Lovenox) 40 mg SUBCUT BEDTIME [facility] Piperacillin/Tazobactam/ (Dextrose 3.375 gm/ Premix) 50 mls @ 100 mls/hr IV Q6H [facility] Insulin Aspart (Novolog) 0 unit SUBCUT QIDACANDBED [facility]; Protocol Last Admin: 12/04/17 09:04 Dose: Not Given Ondansetron HCl (Zofran Odt) 4 mg PO Q6H PRN PRN Reason: Nausea able to take PO Ondansetron HCl (Zofran) 4 mg IV Q4H PRN PRN Reason: Nausea/Vomiting Oxycodone HCl (Oxycodone) 5 mg PO Q4H PRN PRN Reason: Pain (moderate 4-6) Discontinued Medications Acetaminophen (Tylenol) 650 mg PO NOW ONE Stop: 12/03/17 22:38 Last Admin: 12/03/17 23:19 Dose: 650 mg Enoxaparin Sodium (Lovenox) 40 mg SUBCUT DAILY [facility] Last Admin: 12/04/17 01:14 Dose: 40 mg Sodium Chloride (Normal Saline) 1,000 mls @ 999 mls/hr IV ASDIRECTED [facility] Last Admin: 12/03/17 22:04 Dose: 999 mls/hr Sodium Chloride (Normal Saline) 1,000 mls @ 999 mls/hr IV ASDIRECTED [facility] Last Admin: 12/03/17 23:18 Dose: 999 mls/hr Piperacillin Sod/Tazobactam (Sod 3.375 gm/ Sodium Chloride) 50 mls @ 100 mls/ hr IV Q6H [facility] Last Admin: 12/04/17 05:23 Dose: 100 mls/hr Sodium Chloride (Normal Saline) 1,000 mls @ 125 mls/hr IV ASDIRECTED [facility] Last Admin: 12/04/17 09:39 Dose: 125 mls/hr Pantoprazole Sodium (Protonix Iv) 40 mg IVPUSH Q24H [facility] Last Admin: 12/04/17 01:14 Dose: 40 mg Pantoprazole Sodium (Protonix Iv) 40 mg IVPUSH BEDTIME [facility] - Exam Quality Assessment: No: Supplemental Oxygen General: Alert, Oriented, Cooperative, No Acute Distress Neck: Supple Lungs: Clear to Auscultation, Normal Respiratory Effort Cardiovascular: Regular Rate, Regular Rhythm GI/Abdominal Exam: Normal Bowel Sounds, Soft, No Distention, Tender Extremities: No Pedal Edema Psy/Mental Status: Alert, Normal Affect - Problem List Review Problem List Initiated/Reviewed/Updated: Yes - My Orders Last 24 Hours: My Active Orders 12/04/17 10:33 Abdomen Pelvis w Cont [CT] Routine Potassium Chloride [Klor-Con M20] 40 meq PO ONETIME ONE 12/04/17 10:45 Sodium Chloride 0.9% [Normal Saline] 1,000 ml IV ASDIRECTED 12/04/17 21:00 Pantoprazole [ProTONIX] 40 mg PO BEDTIME 12/05/17 05:00 BASIC METABOLIC PANEL,BMP [CHEM] Timed CBC W/O DIFF,HEMOGRAM [HEME] Timed (1) - Plan Plan:: ASSESSMENT AND PLAN - Suspected Sepsis, unknown cause - no obvious source of infection at this time but patient did have tachycardia, lactic acidosis at presentation. She is receiving empiric antibiotics but no obvious symptoms to localize infection. Chest x-ray clear and urine was clear. 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 -continue Pip/Tazo -Gentle IV fluids -CT of the abdomen and pelvis -follow-up cultures Coronary artery disease with hyperlipidemia -no active symptoms. -Continue home medications Diabetes type 2 - sugar control acceptable. -Glucose monitoring 4 times daily -Low dose sliding scale insulin -Hold metformin Maintenance issues - - DVT prophylaxis - enoxaparin 40 mg subcutaneous - GI prophylaxis - PPI - Nutrition - consistent carb diet Disposition - anticipate discharge home after the hospital stay Joaquín Manley M.D.
[2017-12-04] MEDS ORDERED: Potassium Chloride 20 MEQ Tab.ER PO ONE (11:00)
[2017-12-04] MEDS ORDERED: Piperacillin/Tazobactam/Dext 3.375 GM in Premix Bag 1 BAG IV SCH (12:00)
[2017-12-04] MEDS ORDERED: Iopamidol 612 MG/ML 150 ML Bottle IV SCH (13:45)
--- NOTE | 2017-12-04 15:56 | CT ---
Abdomen Pelvis w Cont CLINICAL HISTORY: Abdominal pain, sepsis COMPARISON: None. TECHNIQUE: Axial tomographic images are obtained from the dome of the diaphragm to the pubic symphysi s with IV contrast enhancement. No oral contrast was used. Auto dosage reduction and iterative recons truction techniques employed. FINDINGS: The lung bases are clear. The liver shows diffuse pneumobilia without dilatation. There is a 2.5 x 1.7 cm cyst in the right lobe. The gallbladder has been removed. There are multiple bowel loo ps in the marcell hepatis region extending and replacing the region of the head of the pancreas. This s uggests previous partial pancreatectomy. There is mild prominence of pancreatic duct. No inflammatory changes are identified. The spleen has a normal size and shape. The adrenal glands appear normal danilo aterally. The right kidney shows some pelvocaliectasis and a prominent extrarenal pelvis. The ureter has a normal course and contour. The there multiple cysts on the left kidney. The largest measures 4. 9 x 4.6 cm. The aorta shows no aneurysm. The there is some atherosclerotic plaque.. There is no suspi cious retroperitoneal adenopathy. The appendix is not identified. Intestinal gas pattern is nonacute. There is a small periumbilical hernia containing peritoneal fat IMPRESSION: Previous pancreatic and choledocho surgery with resection of pancreatic head. Pneumobilia without biliary dilatation Right-sided pelvocaliectasis with a prominent extra renal pelvis. This appears chronic. The there may be parapelvic cyst Multiple left renal cysts Small peribuccal hernia containing peritoneal fat
[2017-12-04] MEDS ORDERED: atorvaSTATin 20 MG Tab PO SCH (21:00)
[2017-12-04] MEDS ORDERED: Pantoprazole 40 MG Tab.CR PO SCH (21:00)
[2017-12-05] MEDS: Acetaminophen 325 MG Tab PO PRN (03:03)
[2017-12-05] MEDS: Atenolol 25 MG Tab PO SCH (09:08)
[2017-12-05] MEDS: Diltiazem IR 30 MG Tab PO SCH (09:09)
[2017-12-05] MEDS: Insulin Aspart 100 Units/ML 3 ML Pen SUBCUT SCH (09:10)
--- NOTE | 2017-12-05 09:52 | PCM.DCSUM1 ---
Discharge Summary - Hospital Course Brief History: 72-year-old female with history of Whipple procedure, type 2 diabetes mellitus and coronary artery disease who presented with shaking. Workup in the emergency room was concerning for sepsis though source of infection was not clear. She was admitted for management. - Discharge Data Discharge Date: 12/05/17 Discharge Disposition: Home, Self-Care 01 Condition: Good - Discharge Diagnosis/Problem(s) (1) Sepsis SNOMED Code(s): 05101487 ICD Code: A41.9 - SEPSIS, UNSPECIFIED ORGANISM Status: Suspected Qualifiers: Sepsis type: sepsis due to unspecified organism Qualified Code(s): A41.9 - Sepsis, unspecified organism (2) Dehydration SNOMED Code(s): 39160572 ICD Code: E86.0 - DEHYDRATION Status: Acute (3) Diabetes mellitus SNOMED Code(s): 82352454 ICD Code: E11.9 - TYPE 2 DIABETES MELLITUS WITHOUT COMPLICATIONS Status: Chronic Qualifiers: Diabetes mellitus type: type 2 Diabetes mellitus long-term insulin use: without long-term use Diabetes mellitus complication status: with unspecified complications Qualified Code(s): E11.8 - Type 2 diabetes mellitus with unspecified complications (4) CAD (coronary artery disease) SNOMED Code(s): 62084254 ICD Code: I25.10 - ATHSCL HEART DISEASE OF [place] CORONARY ARTERY W/O ANG PCTRS Status: Chronic Qualifiers: Coronary Disease-Associated Artery/Lesion type: [place] artery [place] vs. transplanted heart: [place] heart Associated angina: without angina Qualified Code(s): I25.10 - Atherosclerotic heart disease of [place] coronary artery without angina pectoris - Patient Summary/Data Consults: Consultations 12/04/17 00:32 Consult to Spiritual Care [CONS] Routine Hospital Course: Donna presented to the emergency room with an episode of shaking and some epigastric pain. Workup in the emergency room was concerning for sepsis with mild tachycardia, lactic acidosis and leukocytosis. There was no obvious source of infection identified. Chest x-ray was clear and urine did not suggest infection. She was empirically started on Pip/Tazo and IV fluids and admitted to the hospital. Overnight her lactic acid level normalized with IV fluids. White blood cell count trended down and clinically she felt much better the morning after admission. She did have some persistent epigastric abdominal pain and was concerned that she had similar episodes to this while she was dealing with her pancreas issues. We did perform a CT scan of the abdomen and pelvis which did not show acute pathology. At this point we discontinued antibiotics and IV fluids. We elected to watch in the hospital a second night. Overnight there were no acute issues. White blood cell count trended farther into the normal range. She did not have any fevers. Her pain has resolved. She has not had any vomiting or diarrhea. The exact cause for her symptoms is not entirely clear. Dehydration may have been contributing. I don't find any evidence for infection and I don't believe she needs additional antibiotics. She will be discharged home and encouraged to return if symptoms return. - Patient Instructions Diet: Diabetic Diet Activity: As Tolerated Driving: May Drive Today Showering/Bathing: May Shower Notify Provider of: Fever, Increased Pain, Nausea and/or Vomiting Other/Special Instructions: 1. You were in the hospital for management of suspected sepsis syndrome. We did not find any strong evidence for infection and antibiotics were discontinued. Your condition has improved with gentle hydration. With no strong evidence for infection do not believe he needs additional antibiotic therapy. I would recommend 64 ounces of water daily to maintain hydration and close monitoring of symptoms to see if additional problems arise. 2. Continue your usual medications as previously prescribed. 3. Follow-up if you develop fever greater than 101, recurrence of the shaking spells, abdominal pain, persistent vomiting or severe diarrhea. - Discharge Plan Home Medications: Home Meds Aspirin [Adult Aspirin] 81 mg PO DAILY 12/03/17 [History] Atenolol 12.5 mg PO DAILY 12/03/17 [History] Diltiazem HCl [Cardizem] 30 mg PO DAILY 12/03/17 [History] Ranitidine [Zantac] 75 mg PO BID 12/03/17 [History] atorvaSTATin [Lipitor] 80 mg PO BEDTIME 12/03/17 [History] metFORMIN HCl [Metformin HCl] 500 mg PO DAILY 12/04/17 [History] metFORMIN [Glucophage] 1,000 mg PO WITHDINNER 12/04/17 [History] Patient Handouts: Dehydration, Adult Referrals: PCP,None [Primary Care Provider] - (follow-up as needed after the hospital stay ) - Discharge Summary/Plan Comment DC Time >30 min.: No (25) - Patient Data Vitals - Most Recent: Last Vital Signs Temp 35.8 C 12/05/17 07:57 Pulse 77 12/05/17 09:08 Resp 16 12/05/17 07:57 BP 140/70 12/05/17 09:08 Pulse Ox 95 12/05/17 07:57 Weight - Most Recent: 78.29 kg I&O - Last 24 hours: Intake & Output 12/04/17 12/05/17 12/05/17 22:59 06:59 14:59 Intake Total 120 Output Total 400 400 Balance -280 -400 Lab Results - Last 24 hrs: Laboratory Results - last 24 hr 12/05/17 12/05/17 Range/Units 05:49 05:49 WBC 5.9 (4.5-11.0) K/uL RBC 4.45 (3.30-5.50) M/uL Hgb 11.8 L (12.0-15.0) g/dL Hct 36.8 (36.0-48.0) % MCV 83 (80-98) fL MCH 27 (27-31) pg MCHC 32 (32-36) % Plt Count 248 (150-400) K/uL Sodium 140 (140-148) mmol/L Potassium 3.6 (3.6-5.2) mmol/L Chloride 105 (100-108) mmol/L Carbon Dioxide 24 (21-32) mmol/L Anion Gap 10.7 (5.0-14.0) mmol/L BUN 10 (7-18) mg/dL Creatinine 0.6 (0.6-1.0) mg/dL Est Cr Clr Drug Dosing 67.86 mL/min Estimated GFR (MDRD) > 60 (>60) Glucose 121 H (74-106) mg/dL Calcium 8.5 (8.5-10.1) mg/dL KASS[facility]Y Results - Last 24 hrs: Microbiology 12/03/17 22:00 Aerobic Blood Culture - Preliminary Blood - Venous - Lab Draw NO GROWTH AFTER 1 DAY Anaerobic Blood Culture - Preliminary NO GROWTH AFTER 1 DAY 12/03/17 21:45 Aerobic Blood Culture - Preliminary Blood - Venous NO GROWTH AFTER 1 DAY Anaerobic Blood Culture - Preliminary NO GROWTH AFTER 1 DAY Med Orders - Current: Current Medications Acetaminophen (Tylenol) 650 mg PO Q4H PRN PRN Reason: Pain (Mild 1-3)/fever Last Admin: 12/05/17 03:03 Dose: 650 mg Albuterol (Proventil Neb Soln) 2.5 mg NEB Q4H PRN PRN Reason: Shortness Of Breath/wheezing Albuterol/Ipratropium (Duoneb 3.0-0.5 Mg/3 Ml) 3 ml NEB QID PRN PRN Reason: Shortness Of Breath/wheezing Atenolol (Tenormin) 12.5 mg PO DAILY [facility] Last Admin: 12/05/17 09:08 Dose: 12.5 mg Atorvastatin Calcium (Lipitor) 20 mg PO BEDTIME [facility] Last Admin: 12/04/17 21:16 Dose: 20 mg Bisacodyl (Dulcolax) 5 mg PO DAILY PRN PRN Reason: Constipation Diltiazem HCl (Cardizem) 30 mg PO DAILY [facility] Last Admin: 12/05/17 09:09 Dose: 30 mg Diphenhydramine HCl (Benadryl) 25 mg PO BEDTIME PRN PRN Reason: Insomnia Last Admin: 12/04/17 22:23 Dose: 25 mg Docusate Sodium (Colace) 100 mg PO BID PRN PRN Reason: Constipation Enoxaparin Sodium (Lovenox) 40 mg SUBCUT BEDTIME [facility] Last Admin: 12/04/17 21:15 Dose: 40 mg Insulin Aspart (Novolog) 0 unit SUBCUT QIDACANDBED [facility]; Protocol Last Admin: 12/05/17 09:10 Dose: Not Given Ondansetron HCl (Zofran Odt) 4 mg PO Q6H PRN PRN Reason: Nausea able to take PO Ondansetron HCl (Zofran) 4 mg IV Q4H PRN PRN Reason: Nausea/Vomiting Oxycodone HCl (Oxycodone) 5 mg PO Q4H PRN PRN Reason: Pain (moderate 4-6) Pantoprazole Sodium (Protonix) 40 mg PO BEDTIME [facility] Last Admin: 12/04/17 21:16 Dose: 40 mg Discontinued Medications Acetaminophen (Tylenol) 650 mg PO NOW ONE Stop: 12/03/17 22:38 Last Admin: 12/03/17 23:19 Dose: 650 mg Enoxaparin Sodium (Lovenox) 40 mg SUBCUT DAILY [facility] Last Admin: 12/04/17 01:14 Dose: 40 mg Sodium Chloride (Normal Saline) 1,000 mls @ 999 mls/hr IV ASDIRECTED [facility] Last Admin: 12/03/17 22:04 Dose: 999 mls/hr Sodium Chloride (Normal Saline) 1,000 mls @ 999 mls/hr IV ASDIRECTED [facility] Last Admin: 12/03/17 23:18 Dose: 999 mls/hr Piperacillin Sod/Tazobactam (Sod 3.375 gm/ Sodium Chloride) 50 mls @ 100 mls/ hr IV Q6H [facility] Last Admin: 12/04/17 05:23 Dose: 100 mls/hr Sodium Chloride (Normal Saline) 1,000 mls @ 125 mls/hr IV ASDIRECTED [facility] Last Admin: 12/04/17 09:39 Dose: 125 mls/hr Piperacillin/Tazobactam/ (Dextrose 3.375 gm/ Premix) 50 mls @ 100 mls/hr IV Q6H [facility] Last Admin: 12/04/17 11:29 Dose: 100 mls/hr Sodium Chloride (Normal Saline) 1,000 mls @ 25 mls/hr IV ASDIRECTED [facility] Sodium Chloride (Normal Saline) 79 mls @ 3 mls/sec IV ASDIRECTED [facility] Stop: 12/05/17 14:30 Last Admin: 12/04/17 14:01 Dose: 3.5 mls/sec Iopamidol (Isovue-300 (61%)) 118 ml IV . DIRECTED [facility] Stop: 12/04/17 14:30 Last Admin: 12/04/17 14:02 Dose: 118 ml Pantoprazole Sodium (Protonix Iv) 40 mg IVPUSH Q24H [facility] Last Admin: 12/04/17 01:14 Dose: 40 mg Pantoprazole Sodium (Protonix Iv) 40 mg IVPUSH BEDTIME [facility] Potassium Chloride (Klor-Con M20) 40 meq PO ONETIME ONE Stop: 12/04/17 11:01 Last Admin: 12/04/17 11:33 Dose: 40 meq - Exam Quality Assessment: Denies: Supplemental Oxygen General: Reports: Alert, Oriented, Cooperative, No Acute Distress Lungs: Reports: Normal Respiratory Effort GI/Abdominal Exam: No Distention Extremities: No Pedal Edema Psy/Mental Status: Reports: Alert, Normal Affect
== END 2017-12-05 10:40 | disposition home or self-care (01) | DRG 872 ==
LOC: JP.ED 20:38 → JP.MS 12-04 00:05
PROVIDERS: ADMIT Internal Medicine; ATTEND Internal Medicine
DX: A41.9 Sepsis, unspecified organism (principal); E86.0 Dehydration; I25.10 Atherosclerotic heart disease of native coronary artery without angina pectoris; E11.9 Type 2 diabetes mellitus without complications; R50.9 Fever, unspecified; E78.5 Hyperlipidemia, unspecified; I25.2 Old myocardial infarction; Z95.1 Presence of aortocoronary bypass graft; Z95.5 Presence of coronary angioplasty implant and graft; Z96.659 Presence of unspecified artificial knee joint; Z88.8 Allergy status to other drugs, medicaments and biological substances; Z79.82 Long term (current) use of aspirin; Z79.84 Long term (current) use of oral hypoglycemic drugs
CPT/HCPCS: 36415; 71046 ×2; 80053; 81001; 82150; 83605; 83690; 85025; 86140; 87040 ×2; 96361; 96365; 99285; A9270; J2543; J7030 ×2; J7050; 74177; 74177-26; 80048; 82962; 85027; 87804; 87804-59; C9113; J1650